=== PATIENT | female | born 1975 | race Two or more races ===

== ENCOUNTER 2016-04-25 20:49 | Emergency (ER) | payer MEDICAID ==
[~2016-04-25] VITALS: Ht 165.1 cm; Wt 89.4 kg
[~2016-04-25 20:49] MED LIST: ATENPOW10 PO; GABA1POW27 PO; GEMF600T PO; INSUINJ37 SUBCUT; INSULIN SC; LISIPOW PO; TRAM-297 PO
[2016-04-25 21:56] LABS: Basophils # (auto) 0.1 uL; Basophils % (auto) 0.8 % (0.0-2.0); Eosinophils # (auto) 0.3 uL; Eosinophils % (auto) 3.8 % (0.0-7.0); Hematocrit 45.3 % (36.0-46.0); Hemoglobin 14.9 g/dL (12.2-16.2); Lymphocytes # (auto) 3.1 uL; Lymphocytes % (auto) 35.5 % (10.0-50.0); Mean Corpuscular Hemoglobin 29.9 pg (28.0-32.0); Mean Corpuscular Volume 90.6 fL (80.0-100.0); Mean Platelet Volume 10.5 fL (7.4-10.4); Monocytes # (auto) 0.5 uL; Monocytes % (auto) 5.4 % (0.0-12.0); Neutrophils # (auto) 4.8 uL; Neutrophils % (auto) 54.5 % (37.0-80.0); Platelet Count (auto) 271 10^3/uL (140-450); Red Cell Distribution Width 13.7 % (11.6-16.0); White Blood Cell 8.7 10^3/uL (4.4-10.8)
[2016-04-25 22:01] LABS: Urine Bilirubin Negative (Negative); Urine Blood Negative /uL (Negative); Urine Color Yellow (Yellow); Urine Ketone Negative (Negative); Urine Nitrite Negative (Negative); Urine RBC <1 /hpf (0 - 4); Urine Squamous Epithelial Cell FEW /hpf (<5); Urine Urobilinogen Normal (Negative); Urine pH 5.5 (5.0-8.0)
[2016-04-25 22:06] LABS: Urine Glucose 4+ mg/dL (Normal)
[2016-04-25 22:15] LABS: Albumin 2.7 g/dL (3.4-5.0); BUN/Creatinine Ratio 18.4; Bilirubin, Total 0.2 mg/dL (0.2-1.0); Calcium 8.9 mg/dL (8.5-10.1); Potassium 4.4 mmol/L (3.5-5.1); Total Protein 7.1 g/dL (6.4-8.2)
[2016-04-26] MEDS ORDERED: InsuLIN REG 1unit/0.01ml Soln (100units/ml) IV ONE
[2016-04-26] MEDS ORDERED: PROMETHAZINE HCL 25 MG/ML 1ML IV ONE (01:30)
[2016-04-26 01:32] VITALS: BP 149/86
[2016-04-26] MEDS ORDERED: HYDROmorphone HCL 2 MG/ML VL IV ONE (02:15)
[2016-04-26] MEDS ORDERED: SODIUM CHLORIDE 0.9% 1,000 ML IV ONE ×2 (02:15)
[2016-04-26] MEDS ORDERED: ONDANSETRON HCL 4 MG/2 ML VIAL IV ONE (02:15)
== END 2016-04-26 03:43 | disposition home or self-care (01) ==
LOC: ER 20:52
DX: K76.0 Fatty (change of) liver, not elsewhere classified (principal); K59.00 Constipation, unspecified; E11.65 Type 2 diabetes mellitus with hyperglycemia; Z88.6 Allergy status to analgesic agent; Z88.1 Allergy status to other antibiotic agents
CPT/HCPCS: 36415; 74176; 76705; 80053; 81001; 82010; 82150; 82962; 83690; 85025; 96361; 96374; 96375; 99285; J1170; J1815; J2405; J2550; J7030

== ENCOUNTER 2016-06-18 19:20 | Emergency (ER) | payer MEDICAID ==
[~2016-06-18] VITALS: Ht 165.1 cm; Wt 84.4 kg
[2016-06-18 20:41] LABS: Urine Bilirubin Negative (Negative); Urine Blood Negative /uL (Negative); Urine Color Yellow (Yellow); Urine Glucose 4+ mg/dL (Normal); Urine Ketone Negative (Negative); Urine Nitrite Negative (Negative); Urine RBC <1 /hpf (0 - 4); Urine Squamous Epithelial Cell FEW /hpf (<5); Urine Urobilinogen Normal (Negative)
[2016-06-18 20:42] LABS: Basophils # (auto) 0.1 uL; Basophils % (auto) 0.7 % (0.0-2.0); Eosinophils # (auto) 0.3 uL; Eosinophils % (auto) 4.1 % (0.0-7.0); Hematocrit 45.3 % (36.0-46.0); Hemoglobin 15.1 g/dL (12.2-16.2); Lymphocytes % (auto) 38.6 % (10.0-50.0); Mean Corpuscular Hgb Conc. 33.2 g/dL (32.0-36.0); Mean Corpuscular Volume 90.4 fL (80.0-100.0); Mean Platelet Volume 10.4 fL (7.4-10.4); Monocytes # (auto) 0.4 uL; Monocytes % (auto) 5.6 % (0.0-12.0); Neutrophils # (auto) 3.9 uL; Platelet Count (auto) 253 10^3/uL (140-450); White Blood Cell 7.7 10^3/uL (4.4-10.8)
[2016-06-18 21:00] LABS: Partial Thromboplastin Time 26.1 sec (22.64-33.71); Prothrombin Time 9.6 sec (9.37-12.3)
[2016-06-18 21:01] LABS: INR 0.89 (0.9-1.15)
[2016-06-18 21:02] LABS: Albumin 2.6 g/dL (3.4-5.0); Alkaline Phosphatase 103 U/L (45-117); Anion Gap 7 (5-15); Aspartate Aminotransferase 12 U/L (15-37); BUN/Creatinine Ratio 16.9; Bilirubin, Total 0.2 mg/dL (0.2-1.0); Blood Urea Nitrogen 15 mg/dL (7-18); Calcium 8.7 mg/dL (8.5-10.1); Carbon Dioxide 28 mmol/L (21-32); Chloride 99 mmol/L (98-107); GFR African American 89 mL/min; GFR Non-African American 74 mL/min; Potassium 3.7 mmol/L (3.5-5.1); Sodium 134 mmol/L (136-145); Total Protein 7.1 g/dL (6.4-8.2)
[2016-06-18 21:16] LABS: Glucose 511 mg/dL (74-106)
[2016-06-19] MEDS ORDERED: SODIUM CHLORIDE 0.9% 1,000 ML IVB ONE (00:33)
[2016-06-19] MEDS ORDERED: InsuLIN REG 1unit/0.01ml Soln (100units/ml) IV ONE (00:45)
[2016-06-19] MEDS ORDERED: ONDANSETRON HCL 4 MG/2 ML VIAL IV ONE (00:45)
[2016-06-19] MEDS ORDERED: HYDROmorphone HCL 2 MG/ML VL IV ONE (00:45)
[2016-06-19 00:52] LABS: Magnesium 2.2 mg/dL (1.6-2.6)
[2016-06-19] MEDS ORDERED: InsuLIN REG 1unit/0.01ml Soln (100units/ml) ONE (01:18)
[2016-06-19] MEDS ORDERED: InsuLIN REG 1unit/0.01ml Soln (100units/ml) SC ONE (01:30)
[2016-06-19] MEDS ORDERED: diphenhdrAMINE HCL 50 MG/1 ML VL ONE (03:17)
[2016-06-19] MEDS ORDERED: diphenhdrAMINE HCL 50 MG/1 ML VL IV ONE (03:30)
[2016-06-19 04:19] VITALS: BP 152/60
== END 2016-06-19 05:02 | disposition home or self-care (01) ==
LOC: ER 19:20
DX: E11.65 Type 2 diabetes mellitus with hyperglycemia (principal); R11.2 Nausea with vomiting, unspecified; Z79.4 Long term (current) use of insulin; Z88.6 Allergy status to analgesic agent; Z87.440 Personal history of urinary (tract) infections; Z79.899 Other long term (current) drug therapy
CPT/HCPCS: 36415; 36600; 74176; 76705; 80053; 81001; 82010; 82150; 82805; 82962; 83690; 83735; 84484; 85025; 85610; 85730; 93005; 96361; 96372; 96374; 96375; 99285; J1170; J1200; J1815; J2405; J7030